=== PATIENT | male | born 1965 | race African-American/Black ===

== ENCOUNTER 2017-06-01 15:03 | Emergency (ER) | payer SELFPAY ==
--- NOTE | 2017-06-01 16:47 | RAD REPORT ---
EXAM DESCRIPTION: RAD - Knee Right 3 View - 06/01/2017 4:15 pm CLINICAL HISTORY: Knee pain without known precipitating injury. COMPARISON: None. FINDINGS: No fracture, dislocation or periosteal reaction.Small to moderate joint effusion is presen t. Minimal marginal spurring seen in the medial compartment and articular margins of the patella. No foreign body seen. Soft tissues anterior to the knee joint to appear congested or edematous. IMPRESSION: Joint effusion and mild degenerative change. No acute bone finding. Clinical concerns for internal derangement or occult bony injury could be further assessed with MR im aging.
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
== END 2017-06-01 17:36 | disposition home or self-care (01) ==
LOC: ER 15:03
DX: M17.11 Unilateral primary osteoarthritis, right knee (principal); M25.461 Effusion, right knee; I10 Essential (primary) hypertension; E78.5 Hyperlipidemia, unspecified
CPT/HCPCS: 99283